=== PATIENT | male | born 1970 | race Two or more races ===

== ENCOUNTER → 2021-06-09 10:31 | Outpatient (BNVA) | payer SELFPAY | PROVIDERS: Visit Provider Physician Assistant Medical | DX: Z02.79 Encounter for issue of other medical certificate (principal) ==

== ENCOUNTER 2021-06-14 20:34 | Emergency (ER) | payer OTHER, SELFPAY ==
[2021-06-14 21:21] VITALS: BP 116/72; PULSE 86; RESP 17; TEMP 37.2; O2SAT 97; BMI 23.3
[2021-06-14 21:50] LABS: COVID-19 Test Positive (Negative); IDNOW Serial# 9DD0AD1C
--- NOTE | 2021-06-14 22:21 | ED.URI ---
HPI - URI/Sore Throat General Chief Complaint: Upper Respiratory Symptoms Stated Complaint: Covid symptoms Time Seen by Provider: 06/14/21 22:15 Source: patient Mode of arrival: ambulatory Limitations: no limitations History of Present Illness HPI Narrative: Patient not COVID vaccinated with history of asthma, complaining of headache fever low-grade chills nasal congestion shortness of breath sometimes diarrhea for last 5 days feeling much better now as compared to few days ago patient's other family members also sick with the same Related Data Previous Rx's Medication Instructions Recorded albuterol sulfate 90 mcg/actuation 2 puff INHALATION Q4-6H PRN #8.5 g 06/14/21 aerosol inhaler (ProAir HFA) dexamethasone 6 mg tablet 6 mg PO DAILY #7 tab 06/14/21 (Decadron) Allergies Allergy/AdvReac Type Severity Reaction Status Date / Time No Known Allergies Allergy Verified 06/14/21 21:21 Review of Systems Review of Systems: Yes all other systems are reviewed and are negative PMFSH Past Medical History Medical History Asthma Social History Social History Advance Directives: No Advance Directives Information Provided: No Physical Exam Vital Signs: Vital Signs: Last Vital Signs Temp 98.9 F 06/14/21 21:21 Pulse 86 06/14/21 21:21 Resp 17 06/14/21 21:21 BP 116/72 06/14/21 21:21 Pulse Ox 97 06/14/21 21:21 Body Mass Index 23.3 Appearance: Alert. Oriented X3. No acute distress. ENT: Pharynx normal. Oral Mucosa moist Neck: Normal inspection. Neck supple. CVS: Normal heart rate and rhythm. Pulses normal. Respiratory: No respiratory distress. Equal air entry bilateral, no wheezing/rales/rhonchi Abdomen: Soft and nontender. Bowel sounds are present, Skin: Skin warm and dry. Normal skin color. Normal skin turgor. Extremities: No lower extremity edema. No calf tenderness Neuro: Oriented X 3. MDM - URI/Sore Throat MDM Narrative Medical decision making narrative: Patient COVID positive saturating 97- 98% on room air prescribe Decadron advised to follow-up with outpatient previous PCP Lab Data Attestation: I reviewed the patient's lab results. Labs: Lab Results 06/14/21 Range/Units 21:34 COVID-19 (KEY) Positive A (Negative) COVID-19 Clin Com See Note Discharge Plan Discharge Clinical Impression: COVID-19 Patient Disposition: Home, Self-Care Instructions: COVID-19 (Coronavirus Disease 2019) (ED) Additional Instructions: Stay isolated as advised Use your inhaler Decadron as advised Report to ER if not better/shortness of breath Prescriptions: New dexamethasone [Decadron] 6 mg tablet 6 mg PO DAILY Qty: 7 RF: 0 albuterol sulfate [ProAir HFA] 90 mcg/actuation HFA aerosol inhaler 2 puff inhalation Q4-6H PRN (Reason: shortness of breath or wheezing) Qty: 8.5 RF: 0 Interventions: ED Discharge Assessment Last Done: 06/14/21 22:35 Discharge Date/Time: 06/14/21 22:37
== END 2021-06-14 22:37 | disposition home or self-care (01) ==
PROVIDERS: Emergency Provider Internal Medicine; PCP Internal Medicine
DX: U07.1 COVID-19 (principal); R51.9 Headache, unspecified; R50.9 Fever, unspecified
CPT/HCPCS: 36415; 87635; 99283

== ENCOUNTER 2021-09-23 08:17 | Outpatient (REF) | payer OTHER, SELFPAY ==
[2021-09-23 11:18] LABS: Binax Internal Control QC Valid; Binax Lot number: 9864; Binax Now Covid-19 Ag Negative (Negative)
== END 2021-09-23 08:18 | disposition home or self-care (01) ==
LOC: HO.LAB 08:17
PROVIDERS: Visit Provider Internal Medicine
DX: Z20.822 Contact with and (suspected) exposure to COVID-19 (principal)
CPT/HCPCS: 36415; C9803